=== PATIENT | male | born 1985 | race Hispanic/Latino ===

== ENCOUNTER 2018-09-16 11:01 | Observation (INO) | payer BC ==
[~2018-09-16] VITALS: Ht 170.2 cm; Wt 95.7 kg
[2018-09-16] MEDS: FAMOTIDINE 20MG TAB 20 MG TAB PO SCH ×2 (11:27→21:17)
[2018-09-16] MEDS: OSELTAMIVIR PHOSPHATE 75 MG CAP PO SCH ×2 (11:28→21:17)
[2018-09-16] MEDS: METHYLPREDNISOLONE SOD SUCC 125MG/2ML VIAL IVP SCH (11:30)
[2018-09-16] MEDS: CEFTRIAXONE SODIUM 1 GM IVP SCH (11:30)
[2018-09-16] MEDS: 1/2 NORMAL SALINE 1,000 ML IV SCH ×2 (11:30→21:31)
[2018-09-16] MEDS ORDERED: ALBUTEROL SULFATE 0.083% 2.5 MG/3 ML INH IH PRN (11:30)
[2018-09-16] MEDS ORDERED: DIPHENHYDRAMINE HCL 25 MG CAPSULE PO PRN (11:30)
[2018-09-16] MEDS ORDERED: ACETAMINOPHEN 325 MG TAB PO PRN (11:30)
[2018-09-16] MEDS ORDERED: ZOLPIDEM TARTRATE 5 MG TAB PO PRN (11:30)
[2018-09-16] MEDS ORDERED: GUAIFENESIN-DM 200/20 MG 10 ML PO PRN (11:30)
[2018-09-16] MEDS ORDERED: IPRATROPIUM/ALBUTEROL SULFATE 3 ML SOLUTION IH ONE (11:49)
[2018-09-16] MEDS: IPRATROPIUM/ALBUTEROL SULFATE 3 ML SOLUTION IH SCH ×3 (12:00→23:50)
[2018-09-16 12:10] LABS: BASOPHILS % (AUTO) 0.5 % (0.0-5.0); EOSINOPHILS % (AUTO) 1.9 % (0.0-8.0); HEMATOCRIT 51.5 % (42-54); MEAN CORPUSCULAR HEMOGLOBIN 29.5 pg (27.0-33.0); MEAN CORPUSCULAR VOLUME 84.5 fL (79-99); MONOCYTES % (AUTO) 8.5 % (3.0-13.0); NEUTROPHILS % (AUTO) 67.1 % (40.0-77.0); NUCLEATED RED BLOOD CELLS 0.2 % (0.0-0.19); PLATELET COUNT (AUTO) 202 K/uL (130-400); RED CELL DISTRIBUTION WIDTH 13.9 % (11.0-15.5); WHITE BLOOD COUNT (AUTO) 7.4 K/uL (4.8-10.8)
[2018-09-16 12:21] LABS: CREATININE 1.4 mg/dL (0.5-1.5); POTASSIUM 3.8 mmol/L (3.5-5.1)
[2018-09-16 12:26] LABS: ALBUMIN 4.2 g/dL (3.5-5.0); BILIRUBIN,DIRECT 0.1 mg/dL (0.0-0.3); BILIRUBIN,TOTAL 0.3 mg/dL (0.2-1.0); TOTAL PROTEIN, SERUM 8.3 g/dL (6.0-8.3)
[2018-09-16] MEDS ORDERED: CEFTRIAXONE SODIUM 1 GM ONE (13:22)
[2018-09-16] MEDS ORDERED: FAMOTIDINE 20MG TAB 20 MG TAB ONE (13:22)
[2018-09-16] MEDS ORDERED: METHYLPREDNISOLONE SOD SUCC 40MG/ML 1ML ONE (13:22)
[2018-09-16] MEDS ORDERED: 1/2 NORMAL SALINE 1,000 ML IV ONE (13:25)
[2018-09-16 14:30] VITALS: BP 128/70
[2018-09-16] MEDS: AZITHROMYCIN 500MG+NS 250ML 250 ML IV SCH (15:50)
[2018-09-16 16:00] VITALS: BP 130/74
[2018-09-16] MEDS ORDERED: CEPH500C2 PO (19:22)
[2018-09-16 20:00] VITALS: BP 127/77
[2018-09-16] MEDS ORDERED: OSEL75CA17 PO (21:21)
[2018-09-17] VITALS (7 sets, daily range): BP systolic 111–133; BP diastolic 56–79
[2018-09-17] MEDS: METHYLPREDNISOLONE SOD SUCC 125MG/2ML VIAL IVP SCH ×3 (00:23→23:01)
[2018-09-17 05:35] LABS: HEMATOCRIT 49.5 % (42-54); MEAN CORPUSCULAR HGB CONC 34.2 g/dL (32.0-36.0); MEAN CORPUSCULAR VOLUME 84.8 fL (79-99); PLATELET COUNT (AUTO) 199 K/uL (130-400); RED BLOOD CELL COUNT(AUTO) 5.84 MIL/uL (4.50-6.20); RED CELL DISTRIBUTION WIDTH 13.4 % (11.0-15.5); WHITE BLOOD COUNT (AUTO) 11.8 K/uL (4.8-10.8)
[2018-09-17 05:51] LABS: ALBUMIN 3.8 g/dL (3.5-5.0); BILIRUBIN,DIRECT 0.2 mg/dL (0.0-0.3); BILIRUBIN,TOTAL 0.5 mg/dL (0.2-1.0); CREATININE 1.5 mg/dL (0.5-1.5); POTASSIUM 4.6 mmol/L (3.5-5.1); TOTAL PROTEIN, SERUM 7.9 g/dL (6.0-8.3)
[2018-09-17] MEDS: IPRATROPIUM/ALBUTEROL SULFATE 3 ML SOLUTION IH SCH ×3 (06:12→18:12)
[2018-09-17] MEDS: 1/2 NORMAL SALINE 1,000 ML IV SCH ×3 (06:38→20:17)
--- NOTE | 2018-09-17 07:20 | NUR ---
Pt. remained stable, and pt. verbalized feeling much better,report given to incoming NOD using SBAR all questions answered.
[2018-09-17] MEDS: OSELTAMIVIR PHOSPHATE 75 MG CAP PO SCH ×2 (09:47→21:19)
[2018-09-17] MEDS: AZITHROMYCIN 500MG+NS 250ML 250 ML IV SCH (09:47)
[2018-09-17] MEDS: FAMOTIDINE 20MG TAB 20 MG TAB PO SCH ×2 (09:47→21:19)
[2018-09-17] MEDS: ENOXAPARIN SODIUM 40 MG/0.4 ML SYRINGE SQ SCH (09:48)
[2018-09-17] MEDS: CEFTRIAXONE SODIUM 1 GM IVP SCH (12:17)
--- NOTE | 2018-09-17 16:04 | NUR ---
DCP CM met with pt discussed dc plans. Pt is independent prior to admission, lives at home with spouse and son who is only 1.5y/o. Denies any equipments/services. Pt feels safe to go back home, still works and drives, spouse able to assist with transportation and needs as necessary. DC plan to home once table. CM to cont to follow up. Addendum: 09/17/18 at 1605 by RICKY CASAREZ LVN CM Amended: Links added.
[2018-09-18] MEDS: IPRATROPIUM/ALBUTEROL SULFATE 3 ML SOLUTION IH SCH ×3 (00:10→11:25)
[2018-09-18 03:00] VITALS: BP 126/69
[2018-09-18 06:10] LABS: HEMATOCRIT 48.1 % (42-54); MEAN CORPUSCULAR HEMOGLOBIN 29.1 pg (27.0-33.0); MEAN CORPUSCULAR HGB CONC 33.9 g/dL (32.0-36.0); MEAN CORPUSCULAR VOLUME 85.9 fL (79-99); NUCLEATED RED BLOOD CELLS 0.1 % (0.0-0.19); PLATELET COUNT (AUTO) 205 K/uL (130-400); RED CELL DISTRIBUTION WIDTH 13.5 % (11.0-15.5)
[2018-09-18 06:27] LABS: CREATININE 1.6 mg/dL (0.5-1.5); POTASSIUM 4.1 mmol/L (3.5-5.1)
--- NOTE | 2018-09-18 07:58 | NUR ---
Pt. remained stable, verbalized feeling much better.Bedside report given to incoming NOD using SBAR all questions answered.
[2018-09-18 08:00] VITALS: BP 132/77
[2018-09-18] MEDS: ENOXAPARIN SODIUM 40 MG/0.4 ML SYRINGE SQ SCH (09:00)
[2018-09-18] MEDS: FAMOTIDINE 20MG TAB 20 MG TAB PO SCH (09:39)
[2018-09-18] MEDS: OSELTAMIVIR PHOSPHATE 75 MG CAP PO SCH (09:39)
[2018-09-18] MEDS: AZITHROMYCIN 500MG+NS 250ML 250 ML IV SCH (09:39)
[2018-09-18] MEDS: METHYLPREDNISOLONE SOD SUCC 125MG/2ML VIAL IVP SCH (11:30)
[2018-09-18] MEDS: CEFTRIAXONE SODIUM 1 GM IVP SCH (11:30)
[2018-09-18 12:00] VITALS: BP 131/76
--- NOTE | 2018-09-18 15:00 | NUR ---
DISCHARGE INSTRUCTIONS GIVEN. PATIENT INSTRUCTED TO FOLLOW UP WITH DR. PALOMO AND HAVE HIS PRESCRIBTIONS FILLED AND TAKE DIRECTED. IV DISCONTINUED. PATIENT VERBALIZED INSTRUCTIONS
== END 2018-09-18 15:15 | disposition home or self-care (01) ==
LOC: EDH 11:01 → EDHIP 11:20 → 3CH 14:25
PROVIDERS: ADMIT Internal Medicine; ATTEND Internal Medicine
DX: J10.1 Influenza due to other identified influenza virus with other respiratory manifestations (principal); D64.9 Anemia, unspecified; E78.5 Hyperlipidemia, unspecified; J20.9 Acute bronchitis, unspecified; K76.0 Fatty (change of) liver, not elsewhere classified; N17.9 Acute kidney failure, unspecified; Z79.899 Other long term (current) drug therapy; F43.10 Post-traumatic stress disorder, unspecified
CPT/HCPCS: 36415 ×3; 71046; 80048 ×3; 80076 ×2; 85025; 85027 ×2; 94640 ×9; 94664; 96365; 96366 ×3; 96375; 96376 ×2; 99283; A4218 ×2; G0378 ×52; J0456 ×3; J0696 ×3; J1650; J2920; J2930 ×4

== ENCOUNTER 2022-03-26 22:17 | Emergency (ER) | payer BC, OTHER ==
[~2022-03-26] VITALS: Ht 170.2 cm; Wt 88.9 kg
[~2022-03-26 22:17] MED LIST: CEPH500C2 PO; OSEL75CA17 PO
[2022-03-26 22:19] VITALS: BP 137/85
[2022-03-26] MEDS ORDERED: GUAIFENESIN-DM 200/20 MG 10 ML PO ONE (23:00)
[2022-03-26] MEDS ORDERED: OSELTAMIVIR PHOSPHATE 75 MG CAP PO ONE (23:00)
[2022-03-26] MEDS ORDERED: D-ME1POW16 PO (23:11)
[2022-03-26] MEDS ORDERED: OSEL75 PO (23:11)
== END 2022-03-26 23:24 | disposition home or self-care (01) ==
LOC: EDH 22:17
DX: J10.1 Influenza due to other identified influenza virus with other respiratory manifestations (principal)
CPT/HCPCS: 87804

== ENCOUNTER 2022-04-06 14:45 | Emergency (ER) | payer BC ==
[~2022-04-06] VITALS: Ht 170.2 cm; Wt 86.2 kg
[~2022-04-06 14:45] MED LIST changes: +D-ME1POW16 PO; +OSEL75 PO
[2022-04-06] MEDS ORDERED: CYCLOBENZAPRINE HCL 10 MG TABLET PO ONE (15:30)
[2022-04-06] MEDS ORDERED: KETOROLAC 30MG VIAL (30MG/ML) IVP ONE (15:30)
[2022-04-06] MEDS ORDERED: CYCL10TA16 PO (15:59)
[2022-04-06] MEDS ORDERED: NAPR-1180 PO (15:59)
[2022-04-06 16:36] VITALS: BP 122/89
== END 2022-04-06 17:00 | disposition home or self-care (01) ==
LOC: EDH 14:45
DX: S39.012A Strain of muscle, fascia and tendon of lower back, initial encounter (principal); E78.00 Pure hypercholesterolemia, unspecified; Z98.890 Other specified postprocedural states; V49.49XA Driver injured in collision with other motor vehicles in traffic accident, initial encounter; Y93.89 Activity, other specified; Y92.413 State road as the place of occurrence of the external cause; Y99.8 Other external cause status
CPT/HCPCS: 99284; 96374; 72100; J1885